=== PATIENT | female | born 1985 | race Caucasian/White ===

== ENCOUNTER → 2017-11-15 | Outpatient (CLI) | payer OTHER | LOC: FIMAGING 13:36 | PROVIDERS: ATTEND Obstetrics & Gynecology | DX: Z34.81 Encounter for supervision of other normal pregnancy, first trimester (principal); Z3A.12 12 weeks gestation of pregnancy ==

== ENCOUNTER → 2018-01-02 | Outpatient (CLI) | payer OTHER | LOC: FIMAGING 10:18 | PROVIDERS: ATTEND Obstetrics & Gynecology | DX: O34.219 Maternal care for unspecified type scar from previous cesarean delivery (principal); O26.02 Excessive weight gain in pregnancy, second trimester; Z87.59 Personal history of other complications of pregnancy, childbirth and the puerperium; Z3A.19 19 weeks gestation of pregnancy ==

== ENCOUNTER → 2018-02-07 | Outpatient (CLI) | payer OTHER | LOC: FIMAGING 14:25 | PROVIDERS: ATTEND Obstetrics & Gynecology | DX: O36.62X0 Maternal care for excessive fetal growth, second trimester, not applicable or unspecified (principal); O44.42 Low lying placenta NOS or without hemorrhage, second trimester; O99.212 Obesity complicating pregnancy, second trimester; O34.219 Maternal care for unspecified type scar from previous cesarean delivery; Z87.59 Personal history of other complications of pregnancy, childbirth and the puerperium; Z3A.24 24 weeks gestation of pregnancy ==